=== PATIENT | male | born 1975 | race Caucasian/White ===

== ENCOUNTER 2016-10-02 14:37 | Emergency (ER) | payer BC ==
--- NOTE | ~2016-10-02 | ER ---
PATIENT'S NAME: KEN PEDRAZA [facility] AGE: 41 Y [address] ROOM: [place] [address] LOCATION: [facility] ADMIT DATE: 10/02/2016 ER/Outpatient Report DISCHARGE DATE: 10/02/2016 FAMILY PHYSICIAN: Antoine Arthur MD ATTENDING PHYSICIAN: Marylou Hazel Time of Arrival: 1440 hours. Time of Exam: 1440 hours. CHIEF COMPLAINT: Right flank pain. HISTORY OF PRESENT ILLNESS: The patient states he began having right flank pain on 09/28/2016. On 09/29/2016, he started having nausea and vomiting. He has had fever and chills off and on, urinary frequency but no pain with urination, has not noticed any blood with his urine. Last bowel movement was on 09/28/2016. He did talk with Dr. Arthur, his primary provider over the weekend regarding the symptoms, who felt that he may have a kidney stone. Dr. Arthur gave him a prescription for hydrocodone which he has taken off and on for the pain. He states he last took one at 8 o'clock this morning. He reports he has been drinking a lot of cranberry juice with water. The pain had moved from the right flank area down into the right anterior groin area, but today it is back into the right flank area. ALLERGIES: NO KNOWN ALLERGIES. CURRENT MEDICATIONS: 1. Hydrocodone. 2. Tramadol. PAST MEDICAL HISTORY: Shoulder pain. Recovering alcoholic. PAST SURGICAL HISTORY: Carpal tunnel on the right. SOCIAL HISTORY: He smokes half a pack per day and has for quite a few years. Smokes marijuana on an occasional basis. Does not drink any alcohol, he has been dry for 19 years he states. He states he was a very heavy drinker prior to that. He presents to the ER accompanied by his . Dr. Arthur from [place] as their provider that he sees. PATIENT'S NAME: KEN PEDRAZA [facility] AGE: 41 Y [address] ROOM: [place] [address] LOCATION: ED ADMIT DATE: 10/02/2016 ER/Outpatient Report DISCHARGE DATE: 10/02/2016 FAMILY PHYSICIAN: Antoine Arthur MD ATTENDING PHYSICIAN: Marylou Hazel REVIEW OF SYSTEMS: All negative other than those mentioned in the HPI. PHYSICAL EXAMINATION: VITAL SIGNS: He weighed 63.9 kg. Blood pressure is 153/88, pulse of 80, respirations 16, temperature of 99.4 tympanic, and O2 saturations 100% on room air. GENERAL: He is awake, alert, and oriented x4. SKIN: [place], warm, and dry. RESPIRATIONS: Even and nonlabored. Lung sounds are clear throughout. HEART: Regular rate and rhythm. ABDOMEN: Soft and nondistended. Bowel sounds are present. He denies any flank pain at this time. It is very minimal at 3. LABORATORY DATA AND X-RAYS: Lab work was drawn. White count is 16.2 with a hemoglobin of 14.3 and hematocrit of 41.2. Chem panel: Sodium is 137, potassium 3.3, chloride 100, BUN 10, and creatinine 0.8. Liver function was normal. UA was obtained, was negative for infection, did have 25 blood in it. I did scan his abdomen with stone protocol. Radiologist reports no signs of a stone or hydronephrosis at this time. He does have a small amount of ascites. His liver looks fine. No other abnormalities seen on his CT scan. I did check amylase and lipase, they are within normal limits. IMPRESSION: 1. Right flank pain. 2. Ascites. PLAN: With a white count being elevated, I am going to cover the patient with antibiotics, Bactrim DS x5 days. Encourage fluids and rest. Continue his other medications as needed. He is to follow up with Dr. Arthur in the next 2 to 3 days, sooner if symptoms worsen or change. Did discuss with the patient that the stone may have already passed. He may have some blood in his urine, if it becomes bright red or he has clotting, he needs to be checked right away. He verbalized understanding. CARRIE ZAPATA APRN FOR MD KAUR RICKS/sharmin PATIENT'S NAME: KEN PEDRAZA [facility] AGE: 41 Y [address] ROOM: [place] [address] LOCATION: [facility] ADMIT DATE: 10/02/2016 ER/Outpatient Report DISCHARGE DATE: 10/02/2016 FAMILY PHYSICIAN: Antoine Arthur MD ATTENDING PHYSICIAN: Marylou Hazel /[id number] d: 10/02/16 2342 t: 10/14/16 0834, OUTPATIENT REPORT
[2016-10-02 15:03] LABS: BILIRUBIN URINE NEGATIVE (NEGATIVE); BLOOD URINE 25 /UL (NEGATIVE); COLOR URINE STRAW (YELLOW); GLUCOSE URINE NEGATIVE (NEGATIVE); KETONE URINE NEGATIVE (NEGATIVE); LEUKOCYTES URINE NEGATIVE /UL (NEGATIVE); NITRITE URINE NEGATIVE (NEGATIVE); PROTEIN URINE NEGATIVE (NEGATIVE); SPEC GRAVITY URINE 1.005 (1.003-1.035); TURBIDITY URINE CLEAR (CLEAR); UROBILINOGEN URINE NORMAL (NORMAL)
[2016-10-02 15:09] LABS: BASOPHIL # 0.1 K/uL (0.0-0.2); BASOPHIL % 0.4 %; EOSINOPHIL % 0.1 %; HEMATOCRIT 41.2 % (37.0-53.0); HEMOGLOBIN 14.3 g/dL (12.0-17.0); IMMATURE GRANULOCYTE # 0.1 K/uL (0.0-0.3); IMMATURE GRANULOCYTE % 0.5 %; LYMPHOCYTE # 1.7 K/uL (0.8-4.0); LYMPHOCYTE % 10.6 %; MCHC 34.7 gm/dL (32.0-36.5); MCV 86.4 fl (83.0-98.0); MONOCYTE # 1.6 K/uL (0.0-1.0); MONOCYTE % 10.1 %; MPV 10.1 fl (9.4-12.4); NEUTROPHIL # (ANC) 12.7 K/uL (1.4-9.0); NEUTROPHIL % 78.3 %; NRBC % 0 /100WBC (0-0.00); PLATELET COUNT 310 K/uL (150-450); RBC 4.77 M/uL (4.00-6.00)
[2016-10-02 15:13] LABS: WBC 16.2 K/uL (4.0-11.0)
[2016-10-02 15:14] LABS: WBC URINE 0-2 #/HPF (NEGATIVE)
[2016-10-02 15:15] LABS: BACTERIA URINE NEGATIVE (NEGATIVE); EPITHELIAL URINE 0-2 #/HPF (NEGATIVE); RBC URINE NEGATIVE #/HPF (NEGATIVE)
[2016-10-02 15:26] LABS: ALBUMIN 4.2 gm/dL (3.5-5.0); ALK PHOS 50 IU/L (33-138); ALT 39 IU/L (12-78); ANION GAP 8.3 (10.0-19.0); AST 20 IU/L (10-40); BLOOD UREA NITROGEN 10 mg/dL (6-24); CALCIUM 9.4 mg/dL (8.5-10.5); CHLORIDE 100 mMol/L (96-110); CO2 32 mMol/L (22-32); CREATININE 0.8 mg/dL (0.6-1.3); ESTIMATED GFR (MDRD EQUATION) > 60; POTASSIUM 3.3 mMol/L (3.7-5.1); SODIUM 137 mMol/L (135-145); TOTAL BILIRUBIN 0.8 mg/dL (0.0-1.5); TOTAL PROTEIN 7.9 g/dL (6.0-8.4)
== END 2016-10-02 16:25 | disposition disaster alternative care site (69) ==
LOC: GMED 14:37
PROVIDERS: Nurse Practitioner Family
DX: R18.8 Other ascites (principal); R10.9 Unspecified abdominal pain; F17.210 Nicotine dependence, cigarettes, uncomplicated; Z79.899 Other long term (current) drug therapy